=== PATIENT | male | born 1955 | race Caucasian/White ===

== ENCOUNTER → 2018-05-05 | Outpatient (CLI) | payer OTHER ==
[~2018-05-05] MED LIST: AMLO1CAP10 PO
[2018-05-05 10:43] LABS: ANION GAP 8 mmol/L (5-15); CHLORIDE 108 mmol/L (98-107)
[2018-05-05 10:46] LABS: ALANINE AMINOTRANSFERASE 32 U/L (12-78); ALKALINE PHOSPHATASE 60 U/L (45-117); BILIRUBIN,TOTAL 0.6 mg/dL (0.2-1.0); CREATININE 0.97 mg/dL (0.7-1.3); TOTAL PROTEIN 7.6 g/dL (6.4-8.2)
== END | disposition home or self-care (01) ==
LOC: STAR 09:24
PROVIDERS: ATTEND Surgery
DX: Z01.818 Encounter for other preprocedural examination (principal); K42.9 Umbilical hernia without obstruction or gangrene
CPT/HCPCS: 36415; 80053; 93005

== ENCOUNTER 2018-05-15 10:19 | Day surgery (SDC) | payer OTHER ==
[~2018-05-15] VITALS: Ht 170.2 cm; Wt 80.7 kg
[~2018-05-15 10:19] MED LIST changes: +BUPIVACAINE/PF-EPI 0.5% 1:200K ONE
[2018-05-15] MEDS ORDERED: LACTATED RINGERS 1,000 ML IV SCH (10:45)
[2018-05-15 10:55] VITALS: BP 141/80
[2018-05-15] MEDS ORDERED: FENTANYL PF 250 MCG/5ML ONE (11:59)
[2018-05-15] MEDS ORDERED: MIDAZOLAM 1 MG/ML, 2ML ONE (11:59)
[2018-05-15] MEDS ORDERED: PROPOFOL 10 MG/ML, 20ML ONE (12:00)
[2018-05-15] MEDS ORDERED: WATER-INJECTION,STERILE 10 ML IV ONE (12:00)
[2018-05-15] MEDS ORDERED: CEFAZOLIN 1,000 MG ONE ×2 (12:00)
[2018-05-15] MEDS ORDERED: ROCURONIUM 10MG/ML,5ML ONE (12:02)
[2018-05-15] MEDS ORDERED: NEOSTIGMINE 1 MG/ML, 10ML ONE (12:02)
[2018-05-15] MEDS ORDERED: GLYCOPYRROLATE 0.4 MG/2 ML, 2ML ONE (12:02)
[2018-05-15] MEDS ORDERED: MEPERIDINE/PF 25MG/0.5ML IVPush PRN (13:00)
[2018-05-15] MEDS ORDERED: ONDANSETRON ODT 8 MG PO PRN (13:00)
[2018-05-15] MEDS ORDERED: ONDANSETRON 2MG/ML, 2ML IV PRN (13:00)
[2018-05-15] MEDS ORDERED: ACETAMINOPHEN 325 MG TABLET PO PRN (13:00)
[2018-05-15] MEDS ORDERED: HYDROmorphone 1 MG/ML, 1ML IV PRN (13:00)
[2018-05-15] MEDS ORDERED: MORPHINE SULFATE 4 MG/ML, 1ML IVPush PRN (13:00)
[2018-05-15] MEDS ORDERED: PROMETHAZINE 25 MG/ML, 1ML IM PRN ×2 (13:00)
[2018-05-15] MEDS ORDERED: LABETALOL 5MG/ML, 20ML IV PRN (13:00)
[2018-05-15] MEDS ORDERED: OXYcodone 5 MG/5 ML ORAL.SOL UDC PO PRN (13:00)
[2018-05-15] MEDS ORDERED: hydrALAzine 20 MG/ML, 1ML IV PRN (13:00)
[2018-05-15] MEDS ORDERED: PROMETHAZINE 25 MG/ML, 1ML IV PRN (13:00)
[2018-05-15] MEDS ORDERED: FENTANYL PF 100 MCG/2ML ONE ×2 (13:28→14:04)
[2018-05-15] MEDS ORDERED: HYDROmorphone 2 MG/ML, 1ML ONE (13:28)
[2018-05-15] MEDS ORDERED: ACETAMINOPHEN 650 MG/20.3 ML UDC ONE (13:28)
[2018-05-15] MEDS ORDERED: OXYcodone 5 MG/5 ML ORAL.SOL UDC ONE (13:29)
[2018-05-15] MEDS: FENTANYL PF 100 MCG/2ML IV PRN ×3 (13:48→14:05)
[2018-05-15] MEDS ORDERED: OXYcodone/APAP 5/325MG TABLET ONE (17:57)
[2018-05-15] MEDS ORDERED: morphine SULFATE 10 MG/ML, 1ML IVPush PRN (18:00)
[2018-05-15] MEDS ORDERED: OXYcodone/APAP 5/325MG TABLET PO PRN (18:00)
== END 2018-05-15 18:52 | disposition home or self-care (01) ==
LOC: OUT 10:19
PROVIDERS: ATTEND Surgery
DX: K42.9 Umbilical hernia without obstruction or gangrene (principal); I10 Essential (primary) hypertension; E78.5 Hyperlipidemia, unspecified; Z98.890 Other specified postprocedural states
CPT/HCPCS: 49585; C1781; J0690; J2250; J2550; J2704; J2710; J3010; J7120; Q0162

== ENCOUNTER 2019-07-04 08:31 | Inpatient (IN) | payer OTHER, MEDICARE ==
[2019-06-25 09:38] VITALS: BP 192/75
[~2019-07-04] VITALS: Ht 170.2 cm; Wt 84.5 kg
[~2019-07-04 08:31] MED LIST changes: -AMLO1CAP10 PO; +AMLO1CAP11 PO; -BUPIVACAINE/PF-EPI 0.5% 1:200K ONE; +EPINEPHRINE 1 MG/ML, 1ML ONE; +KETOROLAC 60 MG/2 ML ONE; +ROPIvacaine/PF 0.5%, 30 ML ONE; +SODIUM CHLORIDE 0.9% 50 ML ONE; +TRANEXAMIC ACID 100 MG/ML, 10ML ONE; +VANCOMYCIN 1,000 MG ONE
[2019-07-04] MEDS ORDERED: LACTATED RINGERS 1,000 ML IV SCH (08:58)
[2019-07-04] MEDS ORDERED: GABAPENTIN 300 MG CAPSULE PO ONE (09:00)
[2019-07-04] MEDS ORDERED: ACETAMINOPHEN 500 MG TABLET PO ONE (09:00)
[2019-07-04] MEDS ORDERED: FENTANYL PF 250 MCG/5ML ONE (09:07)
[2019-07-04] MEDS ORDERED: MIDAZOLAM 1 MG/ML, 2ML ONE (09:07)
[2019-07-04] MEDS ORDERED: ZOLPIDEM 5MG TABLET PO PRN (09:30)
[2019-07-04] MEDS ORDERED: OXYcodone IR 5MG TABLET PO PRN (09:30)
[2019-07-04] MEDS ORDERED: BISACODYL 10 MG SUPP PR PRN (09:30)
[2019-07-04] MEDS ORDERED: ONDANSETRON 4 MG TABLET PO PRN (09:30)
[2019-07-04] MEDS ORDERED: HYDROcodone/APAP 5/325 TABLET PO PRN (09:30)
[2019-07-04] MEDS ORDERED: SCOPOLAMINE PATCH, 1.5MG PATCH.TD72 TD ONE ×3 (09:30→10:00)
[2019-07-04] MEDS ORDERED: SENNA/DOCUSATE TABLET PO PRN (09:30)
[2019-07-04] MEDS ORDERED: DIPHENHYDRAMINE 25 MG CAPSULE PO PRN (09:30)
[2019-07-04] MEDS ORDERED: ACETAMINOPHEN 650 MG/20.3 ML UDC PO PRN (09:30)
[2019-07-04] MEDS ORDERED: MAGNESIUM HYDROXIDE 8%, 30ML UDC PO PRN (09:30)
[2019-07-04] MEDS ORDERED: ONDANSETRON 2MG/ML, 2ML IV PRN (09:30)
[2019-07-04] MEDS ORDERED: LIDOCAINE-MPF 2% ,5ML ONE (09:45)
[2019-07-04] MEDS ORDERED: hydrALAzine 20 MG/ML, 1ML ONE (09:45)
[2019-07-04] MEDS ORDERED: OXYcodone 5 MG/5 ML ORAL.SOL UDC PO PRN (10:30)
[2019-07-04] MEDS ORDERED: hydrALAzine 20 MG/ML, 1ML IV PRN (10:30)
[2019-07-04] MEDS ORDERED: MIDAZOLAM 1 MG/ML, 2ML IV PRN (10:30)
[2019-07-04] MEDS ORDERED: MEPERIDINE/PF 25MG/ML,1ML IVPush PRN (10:30)
[2019-07-04] MEDS ORDERED: PROMETHAZINE 25 MG/ML, 1ML IV PRN (10:30)
[2019-07-04] MEDS ORDERED: METOPROLOL 1 MG/ML, 5ML IV PRN (10:30)
[2019-07-04] MEDS ORDERED: ALBUTEROL/IPRATROPIUM 2.5MG/0.5MG, 3 ML NPPB PRN (10:30)
[2019-07-04] MEDS ORDERED: DEXAMETHASONE 4 MG/ML, 1ML ONE (10:31)
[2019-07-04] MEDS ORDERED: ONDANSETRON 2MG/ML, 2ML ONE (10:31)
[2019-07-04] MEDS ORDERED: NEOSTIGMINE 1 MG/ML, 10ML ONE (10:31)
[2019-07-04] MEDS ORDERED: ROCURONIUM 10MG/ML,5ML ONE (10:31)
[2019-07-04] MEDS ORDERED: CEFAZOLIN 1,000 MG ONE (10:31)
[2019-07-04] MEDS ORDERED: PROPOFOL 10 MG/ML, 20ML ONE (10:31)
[2019-07-04] MEDS ORDERED: GLYCOPYRROLATE 0.2MG/1ML, 5ML ONE (10:31)
[2019-07-04] MEDS ORDERED: SUCCINYLCHOLINE 20 MG/ML, 10ML ONE (10:31)
[2019-07-04] MEDS ORDERED: FENTANYL PF 100 MCG/2ML ONE ×3 (10:35→11:25)
[2019-07-04] MEDS: FENTANYL PF 100 MCG/2ML IV PRN ×4 (11:01→11:36)
[2019-07-04] MEDS ORDERED: HYDROmorphone 1 MG/ML, 1ML VIAL ONE ×2 (11:13→11:38)
[2019-07-04] MEDS ORDERED: OXYcodone 5 MG/5 ML ORAL.SOL UDC ONE (11:13)
[2019-07-04] MEDS: HYDROmorphone 2 MG/ML, 1ML IVPush PRN ×3 (11:15→11:45)
[2019-07-04] MEDS ORDERED: PROMETHAZINE 25 MG/ML, 1ML ONE (11:42)
[2019-07-04 12:40] VITALS: BP 122/68
[2019-07-04] MEDS ORDERED: NS + 20MEQ KCL 1,000 ML IV SCH (12:48)
[2019-07-04] MEDS ORDERED: OXYC5CAP2 PO (16:58)
[2019-07-04] MEDS ORDERED: TRAM50TA2 PO (16:59)
[2019-07-04] MEDS ORDERED: MELO7.5T5 PO (17:01)
[2019-07-04] MEDS ORDERED: ONDA4TAB7 PO (17:02)
[2019-07-04] MEDS ORDERED: CEFAZOLIN PMX 2GM/50ML 50 ML IVPB SCH (17:30)
[2019-07-04] MEDS ORDERED: ASPIRIN 81 MG TABLET EC PO SCH (18:00)
[2019-07-04] MEDS ORDERED: DOCUSATE 100 MG CAPSULE PO SCH (21:00)
[2019-07-05] MEDS ORDERED: DEXAMETHASONE 4 MG/ML, 1ML IVPush SCH (06:00)
[2019-07-05] MEDS ORDERED: BENAZEPRIL 20 MG TABLET PO SCH (09:00)
[2019-07-05] MEDS ORDERED: AMLODIPINE 5 MG TABLET PO SCH (09:00)
== END 2019-07-04 18:42 | disposition home or self-care (01) | DRG 470 ==
LOC: ORIP 08:31 → 4NE 12:35
PROVIDERS: ADMIT Orthopaedic Surgery; ATTEND Orthopaedic Surgery
PROC: 0SR906A Replacement of Right Hip Joint with Oxidized Zirconium on Polyethylene Synthetic Substitute, Uncemented, Open Approach (ICD-10-PCS; principal; 2019-07-04 10:30)
DX: M16.11 Unilateral primary osteoarthritis, right hip (principal); I10 Essential (primary) hypertension
CPT/HCPCS: 72170; 73501; 76000; J3490; C1713; G0378; J0171; J0690; J1100; J1170; J1885; J2250; J2405; J2704; J2710; J2795; J3010; J3370; C1776; J0330; J0360; J7120